=== PATIENT | male | born 1945 | race Caucasian/White ===

== ENCOUNTER 2022-03-24 20:32 | Emergency (ER) | payer MEDICARE, SELFPAY ==
[2022-03-24] VITALS (10 sets, daily range): BP systolic 114–130; BP diastolic 73–79; PULSE 86–109; RESP 15–24; TEMP 36; O2SAT 94–98
--- NOTE | ~2022-03-24 | XR_ITS ---
EXAMINATION: XR chest 1V portable DATE: 03/24/2022 21:44 INDICATION: COVID-19 pneumonia. Weakness. TECHNIQUE: A single frontal view of the chest was obtained. COMPARISON: Chest 2 views 09/27/2019 FINDINGS: There are airspace opacities in right mid and lower lung zones and left lower lung zone. No pleural effusion or pneumothorax. The heart size is normal. There is a right internal jugular port w ith tip in right atrium. IMPRESSION: 1. Airspace opacities in right mid and lower lung zones and left lower lung zone, consistent with pne umonia. Reviewed, dictated and finalized at location A. IMPRESSION: 1. Airspace opacities in right mid and lower lung zones and left lower lung zon e, consistent with pneumonia.
--- NOTE | 2022-03-24 21:32 | ECG_ITS ---
Measurements Intervals [place] Rate: 85 P: 42 WY: 161 QRS: -28 QRSD: 77 T: 47 QT: 344 QTc: 409 Interpretive Statements SINUS RHYTHM WITH OCCASIONAL SUPRAVENTRICULAR PREMATURE COMPLEXES BORDERLINE LEFT AXIS DEVIATION [QRS AXIS < -20] LOW QRS VOLTAGE IN PRECORDIAL LEADS [QRS DEFLECTION < 1.0 mV IN CHEST LEADS] NO PREVIOUS ECG AVAILABLE FOR COMPARISON Electronically Signed On 03-25-2022 15:29:52 CDT by Rene Ray MD
--- NOTE | 2022-03-24 22:01 | ED.WEAKNESS ---
HPI - Weakness General Chief complaint: Weakness <Luh Nassar PA-C - Last Filed: 03/25/22 01:53> Stated complaint: weakness/covid+ <Luh Nassar PA-C - Last Filed: 03/25/22 01:53> Time Seen by Provider: 03/24/22 21:31 <Luh Nassar PA-C - Last Filed: 03/25/22 01:53> Source: patient <ESAU Robles Last Filed: 03/25/22 01:53> Mode of arrival: ambulatory <Luh Nassar PA-C - Last Filed: 03/25/22 01:53> Limitations: no limitations <Luh Nassar PA-C - Last Filed: 03/25/22 01:53> History of Present Illness HPI Narrative: This is a 77-year-old male that presents to the emergency department for generalized weakness. Reports he tested positive for COVID today. Reports a mild cough and sore throat and feeling generally weak. He has had several family members that have tested positive for COVID as well. He is vaccinated and boosted. Denies fever, chest pain, or shortness of breath. <Luh Nassar PA-C - Last Filed: 03/25/22 01:53> Related Data Allergies/Adverse reactions: Allergies Allergy/AdvReac Type Severity Reaction Status Date / Time No Known Allergies Allergy Verified 03/25/22 00:23 <Luh Nassar PA-C - Last Filed: 03/25/22 01:53> Review of Systems Review of Systems: CONSTITUTIONAL: Denies fever ENT: Reports sore throat CARDIOVASCULAR: Denies chest pain RESPIRATORY: Reports cough. Denies dyspnea. GASTROINTESTINAL: Denies nausea, vomiting, or diarrhea. NEUROLOGIC: Reports generalized weakness. <Luh Nassar PA-C - Last Filed: 03/25/22 01:53> All systems reviewed & are unremarkable except as noted in HPI and below <Luh Nassar PA-C - Last Filed: 03/25/22 01:53> [facility] Past Medical History Medical History: Medical History (Updated 03/25/22 @ 01:49 by Luh Nassar PA-C) History of CVA (cerebrovascular accident) History of hyperlipidemia History of hypertension History of multiple myeloma <Luh Nassar PA-C - Last Filed: 03/25/22 01:53> Social History Social History: Social History (Updated 03/24/22 @ 22:03 by Luh Nassar PA-C) Smoking status: Never smoker <Luh Nassar PA-C - Last Filed: 03/25/22 01:53> Exam Narrative: GENERAL: Well-appearing, well-nourished, and in no acute distress. HEAD: Normocephalic, atraumatic. EYES: EOMI. ENT: Nares clear, no rhinorrhea or epistaxis. Mucous membranes moist. Oropharynx without tonsillar hypertrophy exudate or other lesions. Bilateral TMs pearly mckeon non-bulging NECK: Supple. No adenopathy or masses. CHEST: Clear to auscultation. No respiratory distress. No wheezes rales or rhonchi HEART: Regular rate and rhythm. No murmur heard. Normal peripheral pulses. EXTREMITIES: Normal range of motion. No edema. SKIN: Warm, dry, no rash. NEURO: No focal deficits. Alert and oriented x3. PSYCH: Normal mood and affect <Luh Nassar PA-C - Last Filed: 03/25/22 01:53> Course TRASH HAULER/PA Physician Supervision I did not see this patient but the care plan was discussed with me, labs and imaging reviewed I agree with the documentation as above <Chang Aj MD - Last Filed: 03/25/22 02:14> Vital Signs Vital signs: Vital Signs Temperature 36.0 C L 03/24/22 20:38 Pulse Rate 109 H 03/24/22 20:38 Respiratory Rate 17 03/24/22 20:38 Blood Pressure 130/73 03/24/22 20:38 Pulse Oximetry 98 03/24/22 20:38 Temperature 36.0 C L 03/24/22 20:38 Pulse Rate 94 03/25/22 00:24 Respiratory Rate 19 03/25/22 00:24 Blood Pressure 114/79 03/24/22 22:46 Pulse Oximetry 99 03/25/22 00:24 <Luh Nassar PA-C - Last Filed: 03/25/22 01:53> Vital Signs Temperature 36.0 C L 03/24/22 20:38 Pulse Rate 109 H 03/24/22 20:38 Respiratory Rate 17 03/24/22 20:38 Blood Pressure 130/73 03/24/22 20:38 Pulse Oximetry 98 03/24/22 20:38 Temperature 36.0 C L 03/24/22 20:38 Pulse Rate 94 03/25/22 00:24 Respira
[2022-03-24 23:05] LABS: Basophils Absolute Auto 0.1 K/mm3 (0.0-0.1); Basophils Percent Auto 0.4 % (0.2-1.2); Eosinophils Percent Auto 0.2 % (0-4.4); Hematocrit 43.8 % (42.0-52.0); Hemoglobin 14.4 g/dL (14.0-18.0); Immature Granulocyte Absolute 0.17 K/mm3 (0.00-0.031); Immature Granulocyte Percent A 0.9 % (0-0.5); Lymphocytes Absolute Auto 1.92 K/mm3 (0.9-3.2); Lymphocytes Percent Auto 10.6 % (18.3-44.2); Mean Corpuscular HGB Conc 32.9 g/dl (32-36); Mean Corpuscular Hemoglobin 30.8 pg (26-34); Mean Corpuscular Volume 93.8 fl (80-100); Mean Platelet Volume 8.8 fl (7.4-10.4); Monocytes Absolute Auto 1.2 K/mm3 (0.1-0.6); Monocytes Percent Auto 6.6 % (2.6-8.5); Neutrophils Absolute Auto 14.8 K/mm3 (1.3-6.7); Neutrophils Percent Auto 81.3 % (45.5-73.1); Platelet Count Result 201 k/mm3 (150-375); Red Blood Count 4.67 M/mm3 (4.6-6.20); Red Cell Distribution Width 13.3 % (11.5-14.5); White Blood Count 18.2 K/mm3 (4.5-10.0)
[2022-03-24 23:16] LABS: INR 1.1; Prothrombin Time 13.5 Seconds (11.1-14.7)
[2022-03-24 23:17] LABS: Partial Thromboplastin Time 23.4 SECONDS (22.3-36.8)
[2022-03-24 23:18] LABS: Lactic Acid Reflex 0.8 mmol/L (0.7-2.0)
[2022-03-24 23:19] LABS: Alanine Aminotransferase 22 U/L (6-50); Albumin Level 3.6 g/dL (3.5-5.1); Alkaline Phosphatase 144 U/L (38-126); Anion Gap 5 mmol/L (8-16); Aspartate Amino Transferase 28 U/L (17-59); Blood Urea Nitrogen 18 mg/dL (9-20); Calcium 8.8 mg/dL (8.4-10.2); Carbon Dioxide 24 mmol/L (22-30); Chloride 104 mmol/L (98-107); Estimated CRCL calculation 50 ml/min; Estimated Glomerular Filt Rate > 60; Glucose 114 mg/dL (65-110); Potassium 3.7 mmol/L (3.4-5.0); Sodium 133 mmol/L (137-145)
[2022-03-25] VITALS (15 sets, daily range): BP systolic 110–116; BP diastolic 78–84; PULSE 69–94; RESP 15–26; O2SAT 94–99
[2022-03-25] MEDS: SODIUM CHLORIDE 0.9% IV 500 ML 999 ML IV CONT (00:24)
[2022-03-25 00:53] LABS: Appearance Urine Clear (Clear); Bilirubin Urine 1+ (Negative); Blood Urine 2+ (Negative); Color Urine Yellow (Yellow); Glucose Urine UA Negative (Negative); Ketones Urine Trace mg/dL (Negative); Leukocyte Esterase Ur Negative LEU/UL (Negative); Nitrate Urine Negative (Negative); Protein Urine 1+ mg/dL (Negative); Specific Grav Ur 1.025 (1.001-1.035); Urobilinogen Urine 0.2 mg/dL (<2.0); pH Urine 5.5 (5.0-9.0)
[2022-03-25 00:58] LABS: Bacteria Urine Trace /hpf; Mucus Urine Heavy /lpf; Squamous Epithelial Cell Urine Rare /hpf (Few); WBC Urine 0-3 /hpf
[2022-03-25 01:06] LABS: Add Urine Microscopic? YES
[2022-03-25 02:12] LABS: SARS-CoV-2 RNA PCR Positive
== END 2022-03-25 03:50 | disposition home or self-care (01) ==
PROVIDERS: Physician Assistant; Emergency Provider Emergency Medicine
DX: U07.1 COVID-19 (principal); J12.82 Pneumonia due to coronavirus disease 2019; E78.5 Hyperlipidemia, unspecified; I10 Essential (primary) hypertension; Z85.79 Personal history of other malignant neoplasms of lymphoid, hematopoietic and related tissues; Z86.73 Personal history of transient ischemic attack (TIA), and cerebral infarction without residual deficits; R94.31 Abnormal electrocardiogram [ECG] [EKG]
CPT/HCPCS: 36415; 71045; 80053; 81001; 83605; 85025; 85610; 85730; 86140; 87040; 93005; 96365; 96367; 96375; 99284; C9803; J0131; J0456; J0696; J1642; J7040; U0003; U0005

== ENCOUNTER 2022-08-16 09:02 | Outpatient (CLI) | payer MEDICARE, SELFPAY ==
[2022-08-16 09:23] LABS: Basophils Absolute Auto 0.06 K/mm3 (0.00-0.10); Basophils Percent Auto 0.5 % (0.0-1.0); Eosinophils Percent Auto 1.5 % (1.0-6.0); Immature Granulocyte Absolute 0.08 K/mm3 (0.00-0.00); Immature Granulocyte Percent A 0.6 % (0.0-0.0); Lymphocytes Absolute Auto 2.35 K/mm3 (1.10-4.50); Mean Corpuscular HGB Conc 33.3 g/dL (32.0-36.0); Mean Corpuscular Hemoglobin 31.4 pg (27.0-31.0); Mean Corpuscular Volume 94.3 fL (78.0-102.0); Mean Platelet Volume 8.8 fl (8.7-11.0); Monocytes Absolute Auto 0.93 K/mm3 (0.10-0.90); Monocytes Percent Auto 7.1 % (2.0-11.0); Neutrophils Absolute Auto 9.5 K/mm3 (1.7-7.2); Neutrophils Percent Auto 72.3 % (50.0-70.0); Platelet Count Result 170 K/mm3 (150-420); Red Blood Count 4.77 M/mm3 (4.70-6.10); Red Cell Distribution Width 13.2 % (11.6-14.4); White Blood Count 13.1 K/mm3 (4.8-10.8)
[2022-08-16 10:24] LABS: Alanine Aminotransferase 60 U/L (16-63); Albumin Level 3.3 g/dL (3.4-5.0); Alkaline Phosphatase 208 U/L (46-116); Anion Gap 8 mmol/L (8-16); Aspartate Amino Transferase 30 U/L (15-37); Bilirubin,Total 0.7 mg/dL (0.00-1.00); Blood Urea Nitrogen 14 mg/dL (7-18); Calcium 8.7 mg/dL (8.5-10.1); Carbon Dioxide 26 mmol/L (21-32); Chloride 106 mmol/L (98-108); Estimated Glomerular Filt Rate > 60; Glucose 71 mg/dL (70-99); Osmolality Calculated 288 mOsm/kg (285-295); Potassium 3.8 mmol/L (3.5-5.1); Sodium 140 mmol/L (136-145); Total Protein 6.1 g/dL (6.4-8.2)
== END 2022-08-16 09:03 | disposition home or self-care (01) ==
LOC: CHSLAB 09:07 → CHSTREATRM 09:23
PROVIDERS: PCP Internal Medicine; Visit Provider Internal Medicine
DX: J02.9 Acute pharyngitis, unspecified (principal); C90.00 Multiple myeloma not having achieved remission
CPT/HCPCS: 80053; 85025

== ENCOUNTER 2024-03-31 15:44 | Observation (INO) | payer MEDICARE, SELFPAY ==
[2024-03-31] VITALS (37 sets, daily range): BP systolic 114–152; BP diastolic 74–100; PULSE 96–113; RESP 18; TEMP 37.2–38.1; O2SAT 93–98
--- NOTE | ~2024-03-31 | CT_ITS ---
CT chest abdomen pelvis w con Ordering provider: Ronald Espino MD History: 79 years Male with . Low-grade fever in an immunocompromised host,CONSTIPATION . Comparison: None. Technique: CT chest, abdomen and pelvis without oral and with IV contrast. FINDINGS: CHEST: --VISUALIZED THORACIC INLET: Normal. Right central line with the tip in the superior vena cava. --MEDIASTINUM: Aorta/coronary arteries: Mild atheromatous disease. Heart/other: The heart is not enlarged. Lymph nodes: No mediastinal or hilar adenopathy. Small prevascular and paratracheal lymph nodes. --LUNGS: Focal pneumonia seen in the right middle lobe anteriorly. Focal area of consolidation the le ft upper and lower lobes bilaterally. Follow-up advised. No pulmonary nodules or masses. No effusion or pneumothorax. Fibrotic changes in the lung bases posteriorly are noted. --MUSCULOSKELETAL: Soft tissues: The superficial soft tissues are normal. Bones: Age appropriate degenerative changes of the spine. Multiple lucent areas are seen in the activ ity possibility of metastatic or lymphomatous infiltration cannot be excluded. Loss of volume of T10 most likely chronic. ABDOMEN/PELVIS: --MUSCULOSKELETAL: Bones: Age appropriate degenerative changes of the spine. No suspicious bony lytic or sclerotic lesio ns. Multiple lucent areas are seen in the activity possibility of metastatic or lymphomatous infiltra tion cannot be excluded. . Similar lesions are seen in the iliac bones and sacrum Superficial soft tissues: The superficial soft tissues are normal. Right inguinal fat-containing hernia. --UPPER ABDOMINAL ORGANS: Liver: Fatty infiltration. Gallbladder: Normal. Spleen: Normal. Stomach/duodenum: Normal. Pancreas: Normal. Adrenals: Normal. Kidneys: Renal cysts in the left kidney lower, upper and mid pole. Tiny cysts in the right kidney. --PELVIC ORGANS: The bladder is underfilled. No bladder stones. --BOWEL AND MESENTERY: Colon: Mild diverticulosis without diverticulitis sigmoid colon. Fluid is seen in the colon which may indicate diarrhea. Normal appendix. Small Bowel: Normal. No obstruction. Peritoneum/mesentery: No free air or free fluid. No mesenteric lymphadenopathy. --RETROPERITONEUM: Mild atheromatous disease of the abdominal aorta. No retroperitoneal lymphadenop athy. IMPRESSION: CHEST: 1. Bilateral patchy pneumonia. Follow-up advised. 2. Multiple lucent lesions in the spine. Multiple myeloma, metastatic lesions and lymphomatous infil tration is not excluded ABDOMEN/PELVIS: 1. No evidence of acute abdominal process. Fluid is seen in the rectum which may indicate diarrhea. 2. Bilateral renal cysts. 3. Fat infiltration of the liver. 4. Lucent areas seen in the spine, sacrum and iliac bones differential as described above with the c hest report. Reviewed, dictated and finalized at location A. IMPRESSION: CHEST: 1. Bilateral patchy pneumonia. Follow-up advised. 2. Multiple lucent lesions in the spine. Multiple myeloma, metastatic lesions and lymphomatous infiltration is not excluded ABDOMEN/PELVIS: 1. No evidence of acute abdominal process. Fluid is seen in the rectum which m ay indicate diarrhea. 2. Bilateral renal cysts. 3. Fat infiltration of the liver. 4. Lucent areas seen in the spine, sacrum and iliac bones differential as desc ribed above with the chest report.
--- NOTE | ~2024-03-31 | XR_ITS ---
EXAMINATION: XR chest 1V portable DATE: 04/02/2024 08:05 INDICATION: Pneumonia TECHNIQUE: frontal view of the chest was obtained. COMPARISON: Chest radiograph dated 03/24/2022 FINDINGS: There is been some decreased density of patchy airspace opacities most prominent in the right mid and left lower lung zones consistent with likely improving multifocal pneumonia. No pleural effusion or pneumothorax. Heart size is normal. Right internal jugular central venous port catheter with distal t ip at the superior cavoatrial junction. IMPRESSION: 1. Improving bilateral multifocal pneumonia. Reviewed, dictated and finalized at location A.
--- NOTE | ~2024-03-31 | XR_ITS ---
XR abdomen/kub 1V 03/31/2024 16:45 Indication: Constipation for 5 days. Right upper quadrant pain. Procedure: KUB Comparison: No prior studies for comparison. Findings: There is moderate gas throughout the colon to the rectum. There is mildly dilated small bow el in the left midabdomen, likely ileus. No abnormal calcifications. No acute osseous abnormality. Impression: 1: Mildly dilated small bowel and colon, likely ileus. Reviewed, dictated and finalized at location B. Impression: 1: Mildly dilated small bowel and colon, likely ileus.
--- NOTE | 2024-03-31 15:57 | ED.GENADULT ---
HPI - General Adult General Chief complaint: Unspecified <Ronald Espino MD - Last Filed: 03/31/24 22:44> Stated complaint: dehydration/constipation <Ronald Espino MD - Last Filed: 03/31/24 22:44> Time Seen by Provider: 03/31/24 15:54 <Ronald Espino MD - Last Filed: 03/31/24 22:44> Source: patient <Ronald Espino MD - Last Filed: 03/31/24 22:44> Mode of arrival: ambulatory <Ronald Espino MD - Last Filed: 03/31/24 22:44> Limitations: no limitations <Ronald Espino MD - Last Filed: 03/31/24 22:44> History of Present Illness HPI narrative: 79-year-old male with multiple myeloma diagnosed 20 years ago status post bone marrow transplant x2, 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 He has had previous episodes of constipation. in addition to constipation he has liquids stool. -- fever with chills -- chronic confusion No nausea/ vomiting. No hematemesis / melena /hematochezia <Ronald Espino MD - Last Filed: 03/31/24 22:44> Onset (ago): day(s) ( 4 days) <Ronald Espino MD - Last Filed: 03/31/24 22:44> Pain Consistency: constant <Ronald Espino MD - Last Filed: 03/31/24 22:44> Relieving factors: none <Ronald Espino MD - Last Filed: 03/31/24 22:44> Associated symptoms: confusion <Ronald Espino MD - Last Filed: 03/31/24 22:44> Treatments prior to arrival: none <Ronald Espino MD - Last Filed: 03/31/24 22:44> Related Data Home medications: Home Medications Medication Instructions Recorded Confirmed amlodipine 5 mg tablet 5 mg PO DAILY 03/31/24 03/31/24 atorvastatin 40 mg tablet 40 mg PO DAILY 03/31/24 03/31/24 mirtazapine 7.5 mg tablet 7.5 mg PO DAILY 03/31/24 03/31/24 valacyclovir 500 mg tablet 500 mg PO BOLUS 03/31/24 03/31/24 <Ronald Espino MD - Last Filed: 03/31/24 22:44> Allergies/adverse reactions: Allergies Allergy/AdvReac Type Severity Reaction Status Date / Time No Known Allergies Allergy Verified 03/31/24 16:17 <Ronald Espino MD - Last Filed: 03/31/24 22:44> Review of Systems Review of Systems: All systems reviewed & are unremarkable except as noted in HPI and below <Ronald Espino MD - Last Filed: 03/31/24 22:44> Constitutional: Constitutional: Reports as per HPI and Reports no additional constitutional complaints <Ronald Espino MD - Last Filed: 03/31/24 22:44> Eyes: Eyes: Reports as per HPI and Reports no additional eye complaints <Ronald Espino MD - Last Filed: 03/31/24 22:44> ENT: Reports system reviewed and no additional complaints, except as documented and Reports as per HPI <Ronald Espino MD - Last Filed: 03/31/24 22:44> Cardiovascular: Cardiovascular: Reports as per HPI and Reports no additional cardiovascular complaints <Ronald Espino MD - Last Filed: 03/31/24 22:44> Respiratory: Respiratory: Reports as per HPI and Reports no additional respiratory complaints <Ronald Espino MD - Last Filed: 03/31/24 22:44> Gastrointestinal: Gastrointestinal: Reports as per HPI, Reports constipation and Reports diarrhea <Ronald Espino MD - Last Filed: 03/31/24 22:44> Comments: abdominal discomfort without any abdominal pain <Ronald Espino MD - Last Filed: 03/31/24 22:44> Genitourinary: Genitourinary: Reports no additional male genitourinary complaints <Ronald Espino MD - Last Filed: 03/31/24 22:44> Musculoskeletal: Musculoskeletal: Reports no additional musculoskeletal complaints and Reports as per HPI <Ronald Espino MD - Last Filed: 03/31/24 22:44> Integumentary/Breasts: Skin/Breast: Reports system reviewed and no additional complaints, except as docu and Reports as per HPI <Ronald Espino MD - Last Filed: 03/31/24 22:44> Neurologic: Reports system reviewed and no additi
[2024-03-31 17:17] LABS: Basophils Absolute Auto 0.02 K/mm3 (0.00-0.10); Basophils Percent Auto 0.4 % (0.0-1.0); Eosinophils Percent Auto 1.8 % (1.0-6.0); Hemoglobin 11.7 g/dL (12.4-15.3); Immature Granulocyte Absolute 0.06 K/mm3 (0.00-0.00); Immature Granulocyte Percent A 1.1 % (0.0-0.0); Lymphocytes Absolute Auto 1.75 K/mm3 (1.10-4.50); Lymphocytes Percent Auto 32.1 % (18.0-42.0); Mean Corpuscular HGB Conc 33.4 g/dL (32-36); Mean Corpuscular Hemoglobin 31.7 pg (27.0-31.0); Mean Corpuscular Volume 94.9 fL (78.0-102.0); Mean Platelet Volume 10.1 fl (8.7-11.0); Monocytes Absolute Auto 0.43 K/mm3 (0.10-0.90); Monocytes Percent Auto 7.9 % (2.0-11.0); Neutrophils Percent Auto 56.7 % (50.0-70.0); Platelet Count Result 155 K/mm3 (150-420); Red Blood Count 3.69 M/mm3 (4.70-6.10); Red Cell Distribution Width 14.2 % (11.6-14.4); White Blood Count 5.5 K/mm3 (4.8-10.8)
[2024-03-31 17:19] LABS: Appearance Urine Clear (Clear); Bilirubin Urine Negative (Negative); Blood Urine 3+ (Negative); Color Urine Yellow (Yellow); Glucose Urine UA Negative (Negative); Ketones Urine Negative (Negative); Leukocyte Esterase Ur Negative LEU/UL (Negative); Nitrate Urine Negative (Negative); Protein Urine 1+ (Negative); Specific Grav Ur >= 1.030 (1.010-1.020)
[2024-03-31 17:23] LABS: Add Urine Microscopic? YES; Squamous Epithelial Cell Urine Rare /hpf (Few); WBC Urine None seen /hpf (0-3)
[2024-03-31 17:24] LABS: Bacteria Urine Trace /hpf; Mucus Urine Few /lpf
[2024-03-31 17:32] LABS: Alanine Aminotransferase 33 U/L (16-63); Albumin Level 2.6 g/dL (3.4-5.0); Alkaline Phosphatase 191 U/L (46-116); Anion Gap 10 mmol/L (4-12); Aspartate Amino Transferase 32 U/L (15-37); Bilirubin,Total 0.8 mg/dL (0.00-1.00); Blood Urea Nitrogen 16 mg/dL (7-18); Calcium 9.2 mg/dL (8.5-10.1); Carbon Dioxide 26 mmol/L (21-32); Chloride 97 mmol/L (98-108); Estimated CRCL calculation 47 ml/min; Estimated Glomerular Filt Rate > 60; Glucose 103 mg/dL (70-99); Lipase 144 U/L (16-77); Osmolality Calculated 277 mOsm/kg (285-295); Potassium 3.3 mmol/L (3.5-5.1); Sodium 133 mmol/L (136-145); Total Protein 6.8 g/dL (6.4-8.2)
[2024-03-31 17:35] LABS: Lactic Acid Reflex 1.5 mmol/L (0.4-2.0)
[2024-03-31 17:53] LABS: Magnesium 2.2 mg/dL (1.8-2.4)
[2024-03-31] MEDS: POTASSIUM CHLORIDE 20 MEQ ER TABLET 40 MEQ PO (17:54)
[2024-03-31] MEDS: LACTATED RINGERS 1,000 ML 999 ML IV CONT (18:03)
--- NOTE | 2024-03-31 18:44 | PC.NURSE ---
PT UP TO BATHROOM MULTIPLE TIMES SINCE ARRIVAL. HAS DIARRHEA. PT DID COMPLETE MAG CITRATE BEFORE ARRIVAL TO ER.
--- NOTE | 2024-03-31 19:00 | PC.NURSE ---
REPORT TO SERINA ENCISO
[2024-03-31 19:02] LABS: Influenza A QL RT-PCR Negative (Negative); Influenza B QL RT-PCR Negative (Negative); RSV RNA, RT-PCR Negative (Negative); SARS-CoV-2 RNA PCR Negative (Negative)
[2024-03-31] MEDS: CEFEPIME 2 GM/NS 50 ML 2 GM/50 ML BAG IVPB (22:45)
[2024-03-31] MEDS: VANCOMYCIN 1,000 MG/NS 250 ML 1,000 MG/250 ML BAG 250 MG IVPB (23:07)
[2024-04-01] VITALS (96 sets, daily range): BP systolic 114–151; BP diastolic 71–97; PULSE 78–110; RESP 16–20; TEMP 36.6–36.7; O2SAT 90–100
[2024-04-01] MEDS: VANCOMYCIN 1,000 MG/NS 250 ML BAG 250 MG IVPB (00:37)
[2024-04-01] MEDS: AZITHROMYCIN 500 MG/NS 250 ML 500 MG/250 ML BAG 250 MG IVPB ×2 (00:40→23:26)
--- NOTE | 2024-04-01 08:10 | PC.NURSE ---
breakfast tray ordered for pt.
--- NOTE | 2024-04-01 09:33 | PC.NURSE ---
pt up to bathroom, daughter in room. pt ate minimal breakfast
[2024-04-01] MEDS: CEFEPIME 2 GM/NS 50 ML 2 GM/50 ML BAG IVPB ×2 (10:31→22:55)
--- NOTE | 2024-04-01 13:24 | PC.NURSE ---
pt sleeping throughout the day, daughter at the desk , concerned with increased coughing. informed about antibiotics scheduled and received. pt has been noted to have coughing when swallowing liquids. informed daughter to be sure to inform oncologist of same , swallow study may need to be performed. will speak with dr serna to see if can try thicken liquids .
--- NOTE | 2024-04-01 14:08 | PC.NURSE ---
dr serna in with pt and daughter discussing issues with swallowing. orange juice and water adjusted to nectar thick consistency. decreased coughing with intake noted. dr serna notified of decreased coughing. pt states throat hurts all the time. order for strep swab.
[2024-04-01 15:33] LABS: Strep Group A RT-PCR NOT DETECTED (Negative)
--- NOTE | 2024-04-01 17:10 | PC.NURSE ---
daughter Mumtaz called update given in regards to bed availability.
--- NOTE | 2024-04-01 19:05 | PC.NURSE ---
report to SERINA chan
[2024-04-01] MEDS: VANCOMYCIN 1,250 MG/NS 250 ML 1,250 MG/250 ML BAG 166.67 MG IVPB (23:23)
[2024-04-02] VITALS (48 sets, daily range): BP systolic 117–142; BP diastolic 74–84; PULSE 82–112; RESP 18–20; TEMP 36.6–37.1; O2SAT 91–100; BMI 25.0
[2024-04-02 07:24] LABS: Basophils Absolute Auto 0.03 K/mm3 (0.00-0.10); Basophils Percent Auto 0.7 % (0.0-1.0); Eosinophils Absolute Auto 0.13 K/mm3 (0.02-0.50); Eosinophils Percent Auto 2.9 % (1.0-6.0); Hematocrit 33.3 % (37.0-46.0); Immature Granulocyte Absolute 0.05 K/mm3 (0.00-0.00); Immature Granulocyte Percent A 1.1 % (0.0-0.0); Lymphocytes Percent Auto 20.1 % (18.0-42.0); Mean Corpuscular Hemoglobin 31.7 pg (27.0-31.0); Mean Platelet Volume 10.1 fl (8.7-11.0); Monocytes Absolute Auto 0.32 K/mm3 (0.10-0.90); Monocytes Percent Auto 7.1 % (2.0-11.0); Neutrophils Absolute Auto 3.05 K/mm3 (1.70-7.20); Neutrophils Percent Auto 68.1 % (50.0-70.0); Platelet Count Result 157 K/mm3 (150-420); Red Blood Count 3.47 M/mm3 (4.70-6.10); White Blood Count 4.5 K/mm3 (4.8-10.8)
[2024-04-02 07:43] LABS: Alanine Aminotransferase 25 U/L (16-63); Albumin Level 2.1 g/dL (3.4-5.0); Alkaline Phosphatase 148 U/L (46-116); Anion Gap 9 mmol/L (4-12); Aspartate Amino Transferase 18 U/L (15-37); Bilirubin,Total 0.8 mg/dL (0.00-1.00); Blood Urea Nitrogen 11 mg/dL (7-18); Calcium 8.7 mg/dL (8.5-10.1); Carbon Dioxide 26 mmol/L (21-32); Chloride 100 mmol/L (98-108); Estimated CRCL calculation 62 ml/min; Estimated Glomerular Filt Rate > 60; Glucose 94 mg/dL (70-99); Osmolality Calculated 279 mOsm/kg (285-295); Potassium 3.4 mmol/L (3.5-5.1); Sodium 135 mmol/L (136-145); Total Protein 5.9 g/dL (6.4-8.2)
[2024-04-02 08:13] LABS: NT Pro B Type Natriuretic Pept 505 pg/mL (0-450)
--- NOTE | 2024-04-02 08:47 | PC.NURSE ---
spoke with daughter Rosy and Mumtaz, regarding transfer and possible admission here at [facility] . pt has improving chest xray and improving labs. Mumtaz GUADARRAMA agreeable with admission at [facility].
--- NOTE | 2024-04-02 08:52 | PM.IMHP ---
H&P: HPI History of Present Illness Date/Time: 04/02/24 08:52 Chief Complaint: dehydration/constipation Narrative: This is a 79 year old male with significant past medical history of multiple myeloma, hypertension, hyperlipidemia who presented to the ER on 03/31/24 with complaints of abdominal discomfort and constipation for the past 4 days. He was originally on [facility] transfer list to go to [place] for bone marrow transplant however there were no beds. He would likely be ineligible for bone marrow transplant considering his acute infection right now. He is being admitted in the setting of bilateral pneumonia. Patient states that he had a few bouts of diarrhea when this initially started along with some shortness of breath and cough. He denies any fever, chills, nausea, vomiting, abdominal pain, chest pain or shortness of breath right now. He is not the best historian. He states that his daughter knows his medical history and medications the best however she is not present at the time of my examination. I called his daughter (Mumtaz) and she states that he was running a low grade temp of 100 at home, decreased appetite, and constipation x 4-5 days. She reached out to his oncologist Dr. Gunn at [facility] who recommended him to go to the hospital for further work up. Daughter states that he had a CAR-T treatment 10 weeks ago which decreased his immune system and he has had frequent infections since that time including a previous diagnosis of pneumonia. Workup in the hospital included an abdominal x-ray which showed mildly dilated small bowel and colon, likely ileus. Chest/abdomen/ pelvis CT showed bilateral patchy pneumonia, multiple lucent lesions in the spine, bilateral renal cysts, fat infiltration of the liver. Initial labs from 03/31/2024 showed a normal white blood cell count 5.5, hemoglobin 11.7, sodium 133, potassium 3.3, chloride 97, alk-phos 191, lipase 144. UA was obtained which showed a urine specific gravity of 1.030, urine protein was 1+, 3+ urine blood, 6-10 urine RBC. respiratory panel was obtained and was negative for influenza a and B, RSV, COVID. Group a strep PCR was negative. Patient was started on niacin, cefepime, and vancomycin on 03/31/2024. He had a repeat chest x-ray done today Which revealed improving bilateral multifocal pneumonia. We will go ahead and transition him from IV antibiotics to oral today. We will check an MRSA on him as well. If negative we will discontinue the Vancomycin. Nursing in the ER noted that patient was coughing with thin liquids and had concerns for aspiration. They started thickening his liquids which shown improvement. We will get swallow study to rule out aspiration component. Review of Systems Review of Systems: All systems reviewed & are unremarkable except as noted in HPI and below Constitutional: Constitutional: Reports as per HPI and Reports no additional constitutional complaints Eyes: Eyes: Reports as per HPI and Reports no additional eye complaints ENT: Reports system reviewed and no additional complaints, except as documented and Reports as per HPI Cardiovascular: Cardiovascular: Reports as per HPI and Reports no additional cardiovascular complaints Respiratory: Respiratory: Reports as per HPI and Reports no additional respiratory complaints Gastrointestinal: Gastrointestinal: Reports as per HPI and Reports no additional gastrointestinal complaints Genitourinary: Genitourinary: Reports no additional male genitourinary complaints and Reports as per HPI Musculoskeletal: Musculoskeletal: Reports no additional musculoskeletal complaints and Reports as per HPI Integumentary/Breasts: Skin/Breast: Reports system reviewed and no additional complaints, except as docu and Reports as per HPI Neurologic: Reports system reviewed and no additional complaints, except as documented and Reports as per HPI Psychiatric: Psychiatric: Reports no additional psychiatric complaints and Reports a
--- NOTE | 2024-04-02 10:55 | ADMGEN ---
0935 This patient, Lloyd Sinha, was admitted to 2nd Floor Room 208-2 from er. Patient/family oriented to hospital policies and general routines including ID bracelet, bed and alarms, visiting hours, pain management, procedures, bathroom and other care routines, personal items, smoking policy, room service/diet, and visiting hours. Information on how to activate the Rapid Response Team has been discussed. Patient/Family are encouraged to report perceived risks to care and to ask questions if they do not understand what they are told or what they should do.
--- NOTE | 2024-04-02 10:57 | PC.NURSE ---
Called for Speech evaluation. Ashley will make sure someone is here either later today or tomorrow morning.
[2024-04-02] MEDS: ATORVASTATIN 40 MG TABLET PO (11:09)
[2024-04-02] MEDS: amLODIPine BESYLATE 5 MG TABLET PO (11:10)
[2024-04-02] MEDS: POTASSIUM CHLORIDE 20 MEQ ER TABLET PO (11:10)
[2024-04-02] MEDS: AMOXICILLIN/CLAVULANATE K 875-125 MG TAB 1 TABLET PO ×2 (11:10→21:21)
[2024-04-02 12:04] LABS: MRSA (PCR) NOT DETECTED (NOT DETECTE)
[2024-04-02 13:20] LABS: Lipase 28 U/L (16-77)
[2024-04-02] MEDS: traZODone HCL 50 MG TABLET PO (21:21)
[2024-04-02] MEDS: AZITHROMYCIN 250 MG TABLET 500 MG PO (21:21)
[2024-04-02 22:24] LABS: Vancomycin Trough 9.4 ug/mL (10.0-15.0)
[2024-04-03] VITALS: BP 132/69; PULSE 93; RESP 20; TEMP 36.3; O2SAT 91
[2024-04-03 08:00] VITALS: BP 131/64; PULSE 71; RESP 16; TEMP 36.7; O2SAT 95
--- NOTE | 2024-04-03 08:28 | PM.DS ---
DS: Admitting Diagnosis Discharge Date 04/03/24 Admitting Diagnosis Bilateral pneumonia Multiple myeloma hyperlipidemia hypertension DS: Discharge Diagnosis Discharge Diagnosis (1) Bilateral pneumonia: Qualifiers: Lung location: unspecified part of lung Pneumonia type: due to unspecified organism Qualified Code(s): J18.9 - Pneumonia, unspecified organism Code(s): J18.9 - Pneumonia, unspecified organism Status: Acute (2) Multiple myeloma: Qualifiers: Multiple myeloma remission status: unspecified Qualified Code(s): C90.00 - Multiple myeloma not having achieved remission Code(s): C90.00 - Multiple myeloma not having achieved remission Status: Chronic (3) Hyperlipidemia: Code(s): E78.5 - Hyperlipidemia, unspecified Status: Chronic (4) Hypertension: Code(s): I10 - Essential (primary) hypertension Status: Chronic DS: Summary Hospital Course Reason for hospitalization: Bilateral pneumonia Multiple myeloma hyperlipidemia hypertension Hospital Course: 04/02/24: This is a 79 year old male with significant past medical history of multiple myeloma, hypertension, hyperlipidemia who presented to the ER on 03/31/24 with complaints of abdominal discomfort and constipation for the past 4 days. He was originally on [facility] transfer list to go to [place] for bone marrow transplant however there were no beds. He would likely be ineligible for bone marrow transplant considering his acute infection right now. He is being admitted in the setting of bilateral pneumonia. Patient states that he had a few bouts of diarrhea when this initially started along with some shortness of breath and cough. He denies any fever, chills, nausea, vomiting, abdominal pain, chest pain or shortness of breath right now. He is not the best historian. He states that his daughter knows his medical history and medications the best however she is not present at the time of my examination. I called his daughter (Mumtaz) and she states that he was running a low grade temp of 100 at home, decreased appetite, and constipation x 4-5 days. She reached out to his oncologist Dr. Gunn at [facility] [place] who recommended him to go to the hospital for further work up. Daughter states that he had a CAR-T treatment 10 weeks ago which decreased his immune system and he has had frequent infections since that time including a previous diagnosis of pneumonia. Workup in the hospital included an abdominal x-ray which showed mildly dilated small bowel and colon, likely ileus. Chest/abdomen/ pelvis CT showed bilateral patchy pneumonia, multiple lucent lesions in the spine, bilateral renal cysts, fat infiltration of the liver. Initial labs from 03/31/2024 showed a normal white blood cell count 5.5, hemoglobin 11.7, sodium 133, potassium 3.3, chloride 97, alk-phos 191, lipase 144. UA was obtained which showed a urine specific gravity of 1.030, urine protein was 1+, 3+ urine blood, 6-10 urine RBC. respiratory panel was obtained and was negative for influenza a and B, RSV, COVID. Group a strep PCR was negative. Patient was started on niacin, cefepime, and vancomycin on 03/31/2024. He had a repeat chest x-ray done today Which revealed improving bilateral multifocal pneumonia. We will go ahead and transition him from IV antibiotics to oral today. We will check an MRSA on him as well. If negative we will discontinue the Vancomycin. Nursing in the ER noted that patient was coughing with thin liquids and had concerns for aspiration. They started thickening his liquids which shown improvement. We will get swallow study to rule out aspiration component. 04/03/24: Patient denies any new complaints today. He is stable for discharge at this time. He will need to finish all of his antibiotics and then follow up with his oncologist as originally scheduled. Final diagnosis: bilateral pneumonia Status at Discharge Cognitive/behavioral status at d
[2024-04-03] MEDS: valACYclovir HCL 500 MG TABLET PO (09:30)
[2024-04-03] MEDS: AMOXICILLIN/CLAVULANATE K 875-125 MG TAB 1 TABLET PO (09:30)
[2024-04-03] MEDS: ATORVASTATIN 40 MG TABLET PO (09:30)
[2024-04-03] MEDS: amLODIPine BESYLATE 5 MG TABLET PO (09:31)
[2024-04-03] MEDS: ASPIRIN 325 MG ENTERIC TABLET PO (09:31)
[2024-04-03 10:03] LABS: Hematocrit 33.4 % (37.0-46.0); Hemoglobin 11.8 g/dL (12.4-15.3); Mean Corpuscular HGB Conc 35.3 g/dL (32-36); Mean Corpuscular Volume 93.3 fL (78.0-102.0); Mean Platelet Volume 9.8 fl (8.7-11.0); Platelet Count Result 187 K/mm3 (150-420); Red Blood Count 3.58 M/mm3 (4.70-6.10); Red Cell Distribution Width 13.8 % (11.6-14.4); White Blood Count 5.1 K/mm3 (4.8-10.8)
[2024-04-03 10:11] LABS: Alanine Aminotransferase 26 U/L (16-63); Albumin Level 2.1 g/dL (3.4-5.0); Alkaline Phosphatase 142 U/L (46-116); Anion Gap 10 mmol/L (4-12); Aspartate Amino Transferase 22 U/L (15-37); Bilirubin,Total 0.8 mg/dL (0.00-1.00); Blood Urea Nitrogen 11 mg/dL (7-18); Calcium 8.9 mg/dL (8.5-10.1); Carbon Dioxide 23 mmol/L (21-32); Chloride 99 mmol/L (98-108); Estimated CRCL calculation 62 ml/min; Estimated Glomerular Filt Rate > 60; Glucose 114 mg/dL (70-99); Osmolality Calculated 274 mOsm/kg (285-295); Potassium 3.5 mmol/L (3.5-5.1); Sodium 132 mmol/L (136-145); Total Protein 5.9 g/dL (6.4-8.2)
--- NOTE | 2024-04-03 13:39 | PC.NURSE ---
Pt discharged to home with family. Discharge instructions given to pt and daughter. New medication instructions given, purpose, time, SE and dosage. Pt and daughter verbalized understanding of instructions. Pt refused wheel chair and walked to the daughters car.
--- NOTE | 2024-04-05 09:23 | PC.NURSE ---
Spoke with daughter currently at [facility] for doctors appointment. She reports he is not doing very well, reason for doctor visit, thanked her for her time.
== END 2024-04-03 13:15 | disposition home or self-care (01) ==
LOC: CHSED 04-02 07:04 → CHS2ND 04-02 09:15
PROVIDERS: Emergency Medicine; Internal Medicine Critical Care Medicine; Nurse Practitioner Acute Care; Admitting Provider Internal Medicine; Emergency Provider Family Medicine; PCP Internal Medicine; Visit Provider Internal Medicine
DX: J18.9 Pneumonia, unspecified organism (principal); C90.00 Multiple myeloma not having achieved remission; K59.00 Constipation, unspecified; I10 Essential (primary) hypertension; E78.5 Hyperlipidemia, unspecified; Z87.891 Personal history of nicotine dependence; Z20.822 Contact with and (suspected) exposure to COVID-19
CPT/HCPCS: 36415; 71045; 71260; 74018; 74177; 80053; 80202; 81001; 83605; 83690; 83735; 83880; 85025; 85027; 87040; 87637; 87641; 87651; 92610; 99285; A9270; G0378; J0456; J0692; J3370; J7120; Q9967

== ENCOUNTER 2024-05-24 16:19 | Outpatient (CLI) | payer MEDICARE, SELFPAY ==
[2024-05-24 17:06] LABS: Basophils Absolute Auto 0.02 K/mm3 (0.00-0.10); Basophils Percent Auto 0.3 % (0.0-1.0); Eosinophils Absolute Auto 0.03 K/mm3 (0.02-0.50); Eosinophils Percent Auto 0.5 % (1.0-6.0); Hematocrit 29.7 % (37.0-46.0); Hemoglobin 9.6 g/dL (12.4-15.3); Immature Granulocyte Absolute 0.03 K/mm3 (0.00-0.00); Immature Granulocyte Percent A 0.5 % (0.0-0.0); Lymphocytes Absolute Auto 1.72 K/mm3 (1.10-4.50); Lymphocytes Percent Auto 28.4 % (18.0-42.0); Mean Corpuscular HGB Conc 32.3 g/dL (32-36); Mean Corpuscular Hemoglobin 34.8 pg (27.0-31.0); Mean Corpuscular Volume 107.6 fL (78.0-102.0); Mean Platelet Volume 10.2 fl (8.7-11.0); Monocytes Absolute Auto 0.63 K/mm3 (0.10-0.90); Monocytes Percent Auto 10.4 % (2.0-11.0); Neutrophils Absolute Auto 3.63 K/mm3 (1.70-7.20); Neutrophils Percent Auto 59.9 % (50.0-70.0); Nucleated Red Blood Cells Absolute Auto 0.03 K/mm3 (0.00-0.00); Nucleated Red Blood Cells Perc 0.5 % (0-0.0); Platelet Count Result 124 K/mm3 (150-420); Red Blood Count 2.76 M/mm3 (4.70-6.10); White Blood Count 6.1 K/mm3 (4.8-10.8)
[2024-05-25 18:56] LABS: Alanine Aminotransferase 63 U/L (16-63); Albumin Level 2.9 g/dL (3.4-5.0); Alkaline Phosphatase 103 U/L (46-116); Anion Gap 12 mmol/L (4-12); Aspartate Amino Transferase 31 U/L (15-37); Bilirubin,Total 0.2 mg/dL (0.00-1.00); Blood Urea Nitrogen 13 mg/dL (7-18); Calcium 8.2 mg/dL (8.5-10.1); Carbon Dioxide 19 mmol/L (21-32); Chloride 110 mmol/L (98-108); Estimated Glomerular Filt Rate > 60; Free T3 2.12 pg/mL (2.18-3.98); Free T4 Free Thyroxine 0.51 ng/dL (0.76-1.46); Glucose 97 mg/dL (70-99); Magnesium 1.6 mg/dL (1.8-2.4); NT Pro B Type Natriuretic Pept 200 pg/mL (0-450); Osmolality Calculated 292 mOsm/kg (285-295); Potassium 4.1 mmol/L (3.5-5.1); Sodium 141 mmol/L (136-145); Thyroid Stimulating Hormone 4.43 uIU/mL (0.36-3.74); Total Protein 5.6 g/dL (6.4-8.2)
== END 2024-05-24 16:20 | disposition home or self-care (01) ==
PROVIDERS: PCP Internal Medicine; Visit Provider Internal Medicine
DX: R00.2 Palpitations (principal); I50.9 Heart failure, unspecified
CPT/HCPCS: 36415; 80053; 83735; 83880; 84439; 84443; 84481; 85025

== ENCOUNTER 2024-09-13 13:41 | Outpatient (CLI) | payer MEDICARE, SELFPAY ==
[2024-09-13] MEDS: HEPARIN SODIUM LOCK FLUSH 500 UNITS/5 ML SYRINGE IV PUSH (13:51)
[2024-09-13 13:52] VITALS: BMI 27.4
[2024-09-13 14:00] VITALS: BP 139/70; PULSE 72; RESP 14
== END 2024-09-13 13:42 | disposition home or self-care (01) ==
PROVIDERS: PCP Internal Medicine; Visit Provider Nurse Practitioner Family
DX: Z45.2 Encounter for adjustment and management of vascular access device (principal)
CPT/HCPCS: 96523